=== PATIENT | male | born 1980 | race Caucasian/White ===

== ENCOUNTER 2023-11-04 12:29 | Emergency (ER) | payer OTHER ==
[~2023-11-04] VITALS: Ht 172.7 cm; Wt 91.6 kg
[2023-11-04 12:41] VITALS: BP 107/66; PULSE 76; RESP 16; TEMP 98.8; O2SAT 96
[2023-11-04] MEDS ORDERED: AMOX1TAB8 PO (13:57)
[2023-11-04] MEDS ORDERED: IBUP-2213 PO (13:57)
[2023-11-04] MEDS ORDERED: PSEU-370 PO (13:57)
[2023-11-04] MEDS ORDERED: FLONAS NS (13:57)
[2023-11-04 14:13] VITALS: BP 107/66; PULSE 76; RESP 16; TEMP 98.8; O2SAT 96
== END 2023-11-04 14:12 | disposition home or self-care (01) ==
LOC: MED 12:29
DX: J32.9 Chronic sinusitis, unspecified (principal); R51.9 Headache, unspecified; Z79.899 Other long term (current) drug therapy
CPT/HCPCS: 99283